=== PATIENT | female | born 1985 | race Caucasian/White ===

== ENCOUNTER 2021-01-01 08:08 | Emergency (ER) | payer OTHER, SELFPAY ==
[2021-01-01 08:10] VITALS: BP 163/100; PULSE 104; RESP 16; TEMP 36.8; O2SAT 99; BMI 44.4
--- NOTE | 2021-01-01 08:38 | ED.DENTAL ---
HPI - Dental/Oral General Chief complaint: Dental/Oral <HENNY Hall - Last Filed: 01/01/21 10:26> Stated complaint: dental pain <HENNY Hall - Last Filed: 01/01/21 10:26> Time Seen by Provider: 01/01/21 08:37 <HENNY Hall - Last Filed: 01/01/21 10:26> Source: patient <HENNY Hall - Last Filed: 01/01/21 10:26> Mode of arrival: ambulatory <HENNY Hall - Last Filed: 01/01/21 10:26> Limitations: no limitations <HENNY Hall - Last Filed: 01/01/21 10:26> History of Present Illness HPI Narrative: 35 yo female with no known medical history presents to the emergency department with 1 day of severe dental pain. Patient states she was scheduled to get it to fall this summer, however she skipped the appointment. She states that they had to take it out because it was a broken and rotted tooth . Patient states she was not able to sleep last night due to severe 10/10 pain, constant in nature, sharp and non radiating. She denies recent dental procedures, trouble breathing, difficulty swallowing, fevers, chills, malaise, fatigue. Denies trauma to the area. Daily 1PPD smoker <HENNY Hall - Last Filed: 01/01/21 10:26> MD Complaint: tooth pain <HENNY Hall - Last Filed: 01/01/21 10:26> Teeth map: 1. Broken tooth. <HENNY Hall - Last Filed: 01/01/21 10:26> Onset (ago): day(s) (1) <HENNY Hall - Last Filed: 01/01/21 10:26> Duration: constant <HENNY Hall - Last Filed: 01/01/21 10:26> Severity: severe <HENNY Hall - Last Filed: 01/01/21 10:26> Severity scale (1-10): 10 <HENNY Hall Last Filed: 01/01/21 10:26> Relieving factors: nothing <HENNY Hall Last Filed: 01/01/21 10:26> Exacerbating factors: nothing <HENNY Hall Last Filed: 01/01/21 10:26> Context: history of dental caries and poor dental care <HENNY Hall Last Filed: 01/01/21 10:26> Treatment prior to arrival: none <HENNY Hall - Last Filed: 01/01/21 10:26> Related Data Home medications: Previous Rx's Medication Instructions Recorded amoxicillin 500 mg capsule 500 mg PO Q8H 7 Days #21 cap 01/01/21 naproxen 500 mg tablet 500 mg PO BID PRN #14 tab 01/01/21 <HENNY Hall Last Filed: 01/01/21 10:26> Allergies/adverse reactions: Allergies Allergy/AdvReac Type Severity Reaction Status Date / Time No Known Allergies Allergy Verified 01/01/21 08:09 <HENNY Hall Last Filed: 01/01/21 10:26> Review of Systems Review of Systems: Constitutional : No Weight loss, No Fever, No Chills, No Fatigue, No Malaise ENT/Mouth : No sore throat, No Rhinorrhea, + tooth pain Eyes: No Eye Pain, No Swelling, No Redness Cardiovascular : No Chest Pain, No SOB, No Dyspnea on Exertion Respiratory : No Cough, No Sputum, No Wheezing Gastrointestinal : No Nausea, No Vomiting, No Diarrhea, No Constipation, No abdominal Pain, No Hematochezia, No Melena Genitourinary : No Dysuria, No Urinary Frequency, No Hematuria, Musculoskeletal : No joint pain, No Myalgias, No Joint Swelling Skin : No Skin Lesions, No rash Neuro : No Weakness, No Numbness, No Dizziness, No Headache All other systems reviewed and are negative <HENNY Hall Last Filed: 01/01/21 10:26> [facility] Past Medical History Attestation statement: The following information was validated with the patient. <HENNY Hall Last Filed: 01/01/21 10:26> Source: old records reviewed and nursing notes reviewed <HENNY Hall - Last Filed: 01/01/21 10:26> Medical History: Medical History (Updated 01/01/21 @ 09:20 by HENNY Hall) No known health problems <HENNY Hall - Last Filed: 01/01/21 10:26> Social History Social History: Social History Advance Directives: No Patient : No <HENNY Hall - Last Filed: 01/01/21 10:26> Physical Exam Vital Signs: Vital Signs: Last Vital Signs Temp 97.8 F 01/01/21 09:06 Pulse 91 01/01/21 09:06 Resp 16 01/01/21 09:06 BP 147/78 H 01/01/21 09:06 Pulse Ox 100 01/01/21 09:06 Body Mass Index 44.4 <HENNY Hall - Last Filed: 01/01/21 10:26> Vital Signs: Last Vital Signs Temp 97.8 F 01/01/21 09:06 Pulse 91 01/01/21 09:06 Resp 16 01/01/21 09:06 BP 147/78 H 01/01/21 09:06 Pulse Ox 100 01/01/21 09:06 Body Mass Index 44.4 <Álvaro Johnson MD - Last Filed: 01/01/21 09:04> Appearance: Alert.? Oriented X3.? No acute distress.?Controlling secretions well Eyes: Pupils equal, round and reactive to light.? ENT: Pharynx normal.?+ poor dention +halatosis + tooth #14 broken +pain with percussion of tooth #14 No abcess noted No gingival swelling. Uvula midline Neck: Normal inspection.? Neck supple.? CVS: Normal heart rate and rhythm.? Pulses normal.? Respiratory: No respiratory distress.? Breath sounds normal.? Abdomen: Soft and nontender.? Skin: Skin warm and dry.? Normal skin color.? Normal skin turgor.? Neuro: Oriented X 3.? No motor deficit.? No sensory deficit. <HENNY Hall - Last Filed: 01/01/21 10:26> Course Reevaluation(s) Reevaluation #1: discussed with PA and agree with plan <Álvaro Johnson MD - Last Filed: 01/01/21 09:04> Time: 09:04 <Álvaro Johnson MD - Last Filed: 01/01/21 09:04> MDM - Dental/Oral MDM Narrative Medical decision making narrative: 08 35-year-old female no known medical history presents to the emergency department with concerns of tooth pain since last night. Patient states she was scheduled to get the tooth removed this summer, however she never went to her appointment. She states that they were taking it out because it was broken, and rotten . Patient is a current daily smoker 1PPD. Patient states she usually goes to the [facility], and she is planning on going tomorrow. Upon physical examination there is poor dentition noted, as well as halitosis. Tooth 14. Appears broken. There is pain to percussion and palpation of tooth 14. No gingival swelling, edema or ecchymosis. No bleeding. No abscess noted. Uvula is midline. Patient appears comfortable, controlling secretions well, no acute distress. Patient's vital signs show patient to be hypertensive, and tachycardic (will recheck vitals prior to discharge) these are likley elevated secondary to 10/10 pain. Plan at this time is to give patient medication for pain and antibiotics. And provide her with outpatient follow-up, she has been advised to follow-up with a dental provider. She has also been advised to return to the emergency department with new or worsening symptoms such as severe pain, fevers, chills as these could be signs of infection. Patient is safe for DC home with dental follow up. <HENNY Hall - Last Filed: 01/01/21 10:26> Discharge Plan Discharge Clinical Impression: Toothache Fracture of tooth Qualifiers: Encounter type: subsequent encounter Fracture type: closed <HENNY Hall - Last Filed: 01/01/21 10:26> Patient Disposition: Home, Self-Care <HENNY Hall - Last Filed: 01/01/21 10:26> Instructions: Toothache (ED), Tooth Extraction (DC) <HENNY Hall - Last Filed: 01/01/21 10:26> Additional Instructions: Take your medications as prescribed. Take all antibiotics. Dont stop them early Follow-up with your dentist tomorrow. [facility] [phone] Return to the emergency department with new or worsening symptoms. Such as worsening pain, fevers, chill, troubble swallowing. In case of emergency call 911 <HENNY Hall - Last Filed: 01/01/21 10:26> Prescriptions: New amoxicillin 500 mg capsule 500 mg PO Q8H 7 Days Qty: 21 RF: 0 naproxen 500 mg tablet 500 mg PO BID PRN (Reason: pain) Qty: 14 RF: 0 <HENNY Hall - Last Filed: 01/01/21 10:26> Referrals: Dorita Smith PA [Primary Care Provider] - 2 days <HENNY Hall - Last Filed: 01/01/21 10:26> Stand Alone Forms: Work/School Release <HENNY Hall - Last Filed: 01/01/21 10:26> Interventions: ED Discharge Assessment Last Done: 01/01/21 09:43 <HENNY Hall - Last Filed: 01/01/21 10:26> Discharge Date/Time: 01/01/21 09:43 <HENNY Hall - Last Filed: 01/01/21 10:26> Print Language: Albanian <HENNY Hall - Last Filed: 01/01/21 10:26>
[2021-01-01 09:06] VITALS: BP 147/78; PULSE 91; RESP 16; TEMP 36.6; O2SAT 100
[2021-01-01] MEDS: Ketorolac Tromethamine 15 MG/ML VIAL 30 MG IM (09:30)
== END 2021-01-01 09:43 | disposition home or self-care (01) ==
PROVIDERS: Emergency Provider Emergency Medicine; PCP Physician Assistant
DX: K08.89 Other specified disorders of teeth and supporting structures (principal); S02.5XXA Fracture of tooth (traumatic), initial encounter for closed fracture; X58.XXXA Exposure to other specified factors, initial encounter; R00.0 Tachycardia, unspecified; F17.200 Nicotine dependence, unspecified, uncomplicated; Y93.9 Activity, unspecified; Y92.9 Unspecified place or not applicable; Y99.9 Unspecified external cause status
CPT/HCPCS: 96372; 99284; J1885

== ENCOUNTER 2021-08-05 22:22 | Emergency (ER) | payer OTHER, SELFPAY ==
[2021-08-05 23:09] VITALS: PULSE 106; RESP 18; TEMP 37; O2SAT 99; BMI 51.5
[2021-08-05] MEDS: Ibuprofen 600 MG TABLET PO (23:15)
--- NOTE | 2021-08-06 01:08 | ED.HA ---
HPI - Headache General Chief Complaint: Headache Stated Complaint: Headache Time Seen by Provider: 08/06/21 01:08 History of Present Illness HPI Narrative: Patient is a 36-year-old female presents today with having headache for 1 day. The headache is frontal in nature. Not associated with any fever chills. No photophobia. Positive congestion. There is no neck pain. There is no diaphoresis no focal weakness. No sore throat. There is no coughing or congestion or upper respiratory symptoms. Patient immunized for COVID x3. Headache is mild. It was gradual in onset. No history of intracranial bleed in the family. No trauma Related Data Previous Rx's Medication Instructions Recorded amoxicillin 500 mg capsule 500 mg PO Q8H 7 days #21 caps 01/01/21 naproxen 500 mg tablet 500 mg PO BID PRN pain #14 tabs 01/01/21 azithromycin 250 mg tablet See Rx Instructions PO .COMPLEX 08/06/21 upper resp infection #6 tabs cetirizine 10 mg tablet (Zyrtec) 10 mg PO DAILY 7 days #7 tabs 08/06/21 Allergies Allergy/AdvReac Type Severity Reaction Status Date / Time No Known Allergies Allergy Verified 01/01/21 08:09 Review of Systems Review of Systems: Positive congestion positive headache no bowel urinary incontinence no focal weakness no fever no chills Yes all other systems are reviewed and are negative [facility] Past Medical History Attestation statement: The following information was validated with the patient. Medical History No known health problems Social History Social History Advance Directives: No Physical Exam Vital Signs: Vital Signs: Last Vital Signs Temp 98.6 F 08/05/21 23:09 Pulse 106 H 08/05/21 23:09 Resp 18 08/05/21 23:09 Pulse Ox 99 08/05/21 23:09 O2 Del Method 08/05/21 23:09 BMI result Body Mass Index 51.5 Appearance: Alert. Oriented X3. No acute distress. Eyes: Pupils equal, round and reactive to light. ENT: Pharynx normal. Neck: Normal inspection. Neck supple. No lymph nodes noted. No crepitus CVS: Normal heart rate and rhythm. Pulses normal. Normal S1 and S2 Respiratory: No respiratory distress. Breath sounds normal. No Wheezing. No rales Abdomen: Soft and nontender. No rigidity. No distention. good BS x4 Skin: Skin warm and dry. Normal skin color. Normal skin turgor. Extremities: No lower extremity edema. Neurovascular intact to all extremities. No Lacerations. No Rash Neuro: Oriented X 3. No motor deficit. No sensory deficit. Moving all extermities. No slurred speech MDM - Headache MDM Narrative Medical decision making narrative: Well-appearing no acute distress. Neurological exam intact. Question sinusitis. Will start patient on some Z-Rajesh. A COVID test is sent. If it is negative we will discharge patient home. COVID test was negative Differential Diagnosis Differential diagnosis: Likely sinusitis Medical Records Attestation: I reviewed the patient's medical records. Lab Data Attestation: I reviewed the patient's lab results. Labs: Lab Results 08/06/21 Range/Units 00:52 COVID-19 (AILIN) Negative (Negative) COVID-19 Clin Com See Note Discharge Plan Discharge Clinical Impression: Sinusitis Patient Disposition: Home, Self-Care Instructions: Sinusitis (ED) Prescriptions: New cetirizine [Zyrtec] 10 mg tablet 10 mg PO DAILY 7 Days Qty: 7 0RF azithromycin 250 mg tablet See Rx Instructions .ROUTE .COMPLEX Qty: 6 0RF Rx Instructions: take 500 mg today (day 1), then 250 mg for 4 days (days 2-5) No Action amoxicillin 500 mg capsule 500 mg PO Q8H 7 Days Qty: 21 0RF naproxen 500 mg tablet 500 mg PO BID PRN (Reason: pain) Qty: 14 0RF Referrals: Dorita Leger MD [Primary Care Provider] -
[2021-08-06 01:13] LABS: COVID-19 Test Negative (Negative); IDNOW Serial# 16C4AD1C
--- NOTE | 2021-08-06 01:16 | PC.NURSE ---
REPORT AND CARE TRANSFERRED TO JULIANA ECHEVARRIA.
== END 2021-08-06 01:59 | disposition home or self-care (01) ==
PROVIDERS: Emergency Provider Emergency Medicine Emergency Medical Services; PCP Family Medicine
DX: J32.9 Chronic sinusitis, unspecified (principal); Z20.822 Contact with and (suspected) exposure to COVID-19
CPT/HCPCS: 87635; 99283

== ENCOUNTER 2024-07-30 15:18 | Outpatient (AMB) | payer BC, SELFPAY ==
--- NOTE | 2024-07-30 15:27 | A.OFFPC_ITS ---
Vital Signs 07/30/24 15:31 Height 4 ft 9.68 in Weight 213 lb BMI 45.0 BP 132/80 Blood Pressure Location Lt brachial Position Sitting Intake Visit Reasons: [facility] Breakfast Attendant Required: No Accompanied by: Self / Same As Patient Allergies No Known Allergies Allergy (Verified 07/30/24 15:41) Medication List - Last Reconciled 07/30/24 by Merline Mullins MD No Known Home Meds Tobacco use date assessed: 07/30/24 Dental Screening Dental Screen Date: 07/30/24 Did you have a dental visit in the last 12 months?: No Did you have a dental problem in the last 6 months where you did not have access to dental care?: No Was dental information given to patient?: Patient has dentist HPI HPI Comments History of Present Illness Details The patient is a 39-year-old female presenting to [facility]. She has a notable medical history of congenital cataracts surgically resolved about two years ago, which she associates with influences, potentially related to her mother's diabetic status. She is experiencing chronic sinusitis aggravated by weather changes. Feelings of anxiety and depression are acknowledged, but the patient is not interested in medication at this time. She has mild major depression with minimal anxiety and I will start her on bupropion. She currently smokes around ten cigarettes per day and consumes alcohol occasionally. The patient's mother has Alzheimer's disease, and her father from pulmonary fibrosis and a mental illness. She is well-informed about her health, including good urinary and bowel function, yet expresses concern over persistent phlegm not alleviated through a cathartic process. While she is aware of weight management conversations regarding tirzepatide, no specific intervention has begun. She confirms her last tetanus vaccine was over ten years ago and consents to receiving it today. [facility] Medical History No known health problems Surgical History History of cataract surgery Family History Mother Alzheimer disease Father Pulmonary fibrosis Mental health disorder Social History (Updated 07/30/24 @ 15:47 by Merline Mullins MD) Housing: Apartment Alcohol intake: current Alcohol intake frequency: holidays/special occasions only Alcohol type: beer and hard liquor Patient Tobacco Use Status: Current everyday Tobacco user Tobacco use type: Cigarette Cigarette Packs Per Day: 0.5 e-Cigarette/Vaping Use: Never Used Second Hand Smoke Exposure: No service: No Current occupational status: employed Current occupational exposures/hazards: No Cognitive needs: No Hearing needs: No Vision needs: Yes Questionnaire PHQ-9 Over the last 2 weeks, how often have you been bothered by any of the following problems? 1. Little interest or pleasure in doing things: not at all 2. Feeling down, depressed, or hopeless: not at all 3. Trouble falling or staying asleep, or sleeping too much: more than half the days 4. Feeling tired or having little energy: several days 5. Poor appetite or overeating: not at all 6. Feeling bad about yourself - or that you are a failure or have let yourself or your family down: not at all 7. Trouble concentrating on things, such as reading the newspaper or watching television: not at all 8. Moving or speaking so slowly that other people could have noticed. Or the opposite - being so fidgety or restless that you have been moving around a lot more than usual: not at all 9. Thoughts that you would be better off or of hurting yourself in some way: not at all Total score: 3 Depression Screening Interpretation: Positive Depression Screening Follow-up: Existing condition, New Medication prescribed and Follow-up Visit Requested Depression Screening Done: Yes 52488 - PHQ-9 Billing: Yes Source: Developed by Drs. Rome Remy, Kassy Oliva, Chandra Fam and colleagues, with an educational ahsan from [employer]. Thrive Questionnaire Date Thrive assessed: 07/30/24 I am a: Patient What is your living situation today?: I have a steady place to live Within the past 12 months, did the food you bought not last and you didn't have the money to get more?: Never true Within the past 12 months, did you worry whether your food would run out before you got money to buy more?: Never true Do you have trouble paying for medicines?: No Do you have trouble getting transportation to medical appointments?: No Do you have trouble paying your heating and electricity bill?: No Do you have trouble taking care of your child, family member or friend?: No Do you have trouble with day-to-day activities such as bathing, preparing meals, shopping, managing finances, etc.?: No Are you currently unemployed and looking for a job?: No Are you interested in more education?: I choose not to answer this question Please select the resources that you would like help with: None Currently or been in a relationship where the following occur: No concerns reported THRIVE Score: 0 AUDIT C Alcohol Use Questionnaire (AUDIT-C) 1. How often do you have a drink containing alcohol?: Monthly or less 2. How many drinks containing alcohol do you have on a typical day when you are drinking?: 1 or 2 3. How often do you have six or more drinks on one occasion?: Never Total Score: 1 Score Reviewed/Action Taken: No JULES-7 AMB Questionnaire JULES-7 Date JULES - 7 assessed: 07/30/24 Feeling nervous, anxious, or on edge: 0 = Not at all Not being able to stop or control worryin = Not at all Worrying too much about different things: 1 = Several days Trouble relaxin = Not at all Being so restless that it is hard to sit still: 0 = Not at all Becoming easily annoyed or irritable: 0 = Not at all Feeling afraid as if something awful might happen: 0 = Not at all Total JULES-7 score (0-4 normal; 5-9 mild; 10-14 moderate; 15-21 severe): 1 Source: Developed by Drs. Rome Remy, Kassy Oliva, Chandra Fam and colleagues, with an educational ahsan from [employer]. JULES-7 Assessment Billing JULES-7 Assessment Tool: JULES-7 Assessment 88508 Review of Systems Const All systems reviewed & are unremarkable except as noted in HPI and below Card Denies chest pain at rest, Denies chest pain with activity, Denies edema, Denies irregular heart rhythm, Denies claudication, Denies dyspnea, Denies dyspnea on exertion, Denies orthopnea, Denies paroxysmal nocturnal dyspnea and Denies slow heart rate Resp Denies cough, Denies dyspnea and Denies dyspnea on exertion GI Denies abdominal pain, Denies change in bowel habits, Denies excessive flatus, Denies nausea and Denies vomiting Physical exam (Primary Care) Vital Signs: Last Vital Signs BP 132/80 07/30/24 15:31 BMI result Body Mass Index 45.0 Tobacco/Smoking Status: Tobacco use Status Tobacco use date assessed 07/30/24 07/30/24 15:38 Patient Tobacco Use Status Current everyday Tobacco 07/30/24 15:47 Tobacco use type Cigarette 07/30/24 15:47 e-Cigarette/Vaping Use Never Used 07/30/24 15:47 PHQ-9: PHQ-9 Score PHQ-9: Total score 3 07/30/24 16:00 Depression Screening Interpretation: Positive Depression Screening Follow-up: Existing condition, New Medication prescribed and Follow-up Visit Requested Thrive Assessment: Date of Thrive Assessment Date Thrive assessed 07/30/24 07/30/24 15:27 Currently or been in a relationship where the following occur: No concerns reported Resp Effort & Inspection: normal respiratory effort Auscultation: clear to auscultation bilaterally Cardio Jugular venous distension: no JVD Rate: regular rate Rhythm: regular rhythm Heart sounds: S1 normal heart sound present and S2 normal heart sound present Extrem General: Yes full ROM Immunizations Boostrix Tdap 2.5 Lf unit-8 mcg-5 Lf/0.5 mL intramuscular syringe Performing Provider: Merline Mullins MD [facility] Administered by: CRYSTAL Davis on 07/30/24 16:01 Dose Route Admin Location Dispensed Lot Number Expiration Date NDC [employer] 0.5 mL IM Left Deltoid 0.5 mL [id number] 10/24/26 [id number] [employer] VIS Given Date VIS Provided VIS Publication Date 07/30/24 Single Vaccine 24 Eligibility Eligibility Date Funding Source Not [facility] Eligible 07/30/24 Private Coding Level of Care Code New Pt Level 4 (38008) Complex EM visit Add On G2211 Diagnoses Morbid obesity with BMI of 45.0-49.9, adult E66.01; Z68.42 JULES (generalized anxiety disorder) F41.1 Mild recurrent major depression F33.0 URI (upper respiratory infection) J06.9 Chronic sinusitis J32.9 Additional Codes JULES-7 Assessment Billing - JULES-7 Assessment Tool: JULES-7 Assessment 22229 ([id number]) PHQ-9 - 03656 - PHQ-9 Billing: Yes ([id number]) Time Spent (min) 20 Assessment & Plan Assessment & Plan (1) Morbid obesity with BMI of 45.0-49.9, adult: Code(s): E66.01 - Morbid (severe) obesity due to excess calories; Z68.42 - Body mass index [BMI] 45.0-49.9, adult Category: Medical (2) JULES (generalized anxiety disorder): Code(s): F41.1 - Generalized anxiety disorder Category: Medical (3) Mild recurrent major depression: Code(s): F33.0 - Major depressive disorder, recurrent, mild Category: Medical (4) URI (upper respiratory infection): Code(s): J06.9 - Acute upper respiratory infection, unspecified Category: Medical (5) Chronic sinusitis: Code(s): J32.9 - Chronic sinusitis, unspecified Category: Medical Plan Management of congenital cataracts does not require further intervention beyond annual ophthalmologic evaluations. Acknowledging the patient's preference against pharmacotherapy for anxiety and depression while considering support options remains a priority. Chronic sinusitis management through conservative measures such as nasal sprays is discussed. Tobacco cessation encouragement continues, with plans to update her tetanus inoculation today. Potential tirzepatide discussions should be revisited in future appointments. Noting family history, precautions against similar health issues are advised. Patient was informed and verbally consented to the use of an ambient scribe for clinic note documentation during this visit. We discussed that her cataracts no longer require monitoring post-surgery. For anxiety and depression, I outlined non-pharmacological approaches since the patient declines medication. Chronic sinusitis likely benefits from [id number] approaches unless exacerbations occur. Attempts at weight management were discussed alongside considering tirzepatide for the future, mindful of potential side effects. I emphasized tobacco cessation benefits and encouraged considering programs or aids. She agreed to update her tetanus vaccine today, understanding risks if vaccination is delayed. Family history was addressed to provide anticipatory guidance. Orders: Orders Complete Blood Count Auto Diff Today E66.01 - Morbid (severe) obesity due to excess calories, Z68.42 - Body mass index [BMI] 45.0-49.9, adult Lipid Panel Today E66.01 - Morbid (severe) obesity due to excess calories, Z68.42 - Body mass index [BMI] 45.0-49.9, adult Comprehensive [place]. Panel Fast Today E66.01 - Morbid (severe) obesity due to excess calories, Z68.42 - Body mass index [BMI] 45.0-49.9, adult Thyroid Stimulating Hormone Today E66.01 - Morbid (severe) obesity due to excess calories, Z68.42 - Body mass index [BMI] 45.0-49.9, adult TDaP Immunization Today Z23 - Encounter for immunization Referrals Medical Weight Management Referral E66.01 - Morbid (severe) obesity due to excess calories, Z68.42 - Body mass index [BMI] 45.0-49.9, adult TUBE TEST TECHNICIAN Referral Z12.4 - Encounter for screening for malignant neoplasm of cervix Medications: New bupropion HCl XL 150 mg PO QAM 90 tabs 1RF 90 days F33.0 - Major depressive disorder, recurrent, mild fluticasone propionate 50 mcg/actuation (Flonase Allergy Relief) administer into each nostril 1 spray intranasal DAILY 16 grams 0RF 30 days J32.9 - Chronic sinusitis, unspecified guaifenesin ER (Mucinex) 600 mg PO BID 10 tabs 0RF 5 days J06.9 - Acute upper respiratory infection, unspecified Discontinued cetirizine (Zyrtec) Discontinued Reason: Patient no longer taking 10 mg PO DAILY 7 days 7 tabs 0RF azithromycin Discontinued Reason: Patient Completed Course take 500 mg today (day 1), then 250 mg for 4 days (days 2-5) 6 tabs 0RF upper resp infection
[2024-07-30 15:31] VITALS: BP 132/80; BMI 45.0
== END 2024-07-30 16:04 | disposition home or self-care (01) ==
LOC: HO.HMCH 15:19
PROVIDERS: PCP Family Medicine; Visit Provider Internal Medicine
DX: E66.01 Morbid (severe) obesity due to excess calories (principal); Z68.42 Body mass index [BMI] 45.0-49.9, adult; F41.1 Generalized anxiety disorder; F33.0 Major depressive disorder, recurrent, mild; J06.9 Acute upper respiratory infection, unspecified; J32.9 Chronic sinusitis, unspecified; Z23 Encounter for immunization

== ENCOUNTER → 2024-07-30 15:18 | Outpatient (BNVA) | payer BC, SELFPAY | PROVIDERS: PCP Family Medicine; Visit Provider Internal Medicine | DX: J32.9 Chronic sinusitis, unspecified (principal); F41.9 Anxiety disorder, unspecified; F17.210 Nicotine dependence, cigarettes, uncomplicated; F41.1 Generalized anxiety disorder; F33.0 Major depressive disorder, recurrent, mild; J06.9 Acute upper respiratory infection, unspecified; E66.01 Morbid (severe) obesity due to excess calories; Z23 Encounter for immunization; Z68.42 Body mass index [BMI] 45.0-49.9, adult | CPT/HCPCS: 90471; 90715; 96127 ==

== ENCOUNTER 2024-08-05 08:48 | Outpatient (REF) | payer BC, SELFPAY ==
[2024-08-05 09:13] LABS: MANUAL DIFF FLAG NO
[2024-08-05 09:59] LABS: Basophils Absolute Auto 0.1 X10*3/uL (0.0-0.2); Basophils Percent Auto 0.6 % (0-2); Eosinophils Absolute Auto 0.2 X10*3/uL (0.0-0.4); Eosinophils Percent Auto 1.9 % (0-4); Hematocrit 42.8 % (37.0-47.0); Imm Gran Abs Auto 0.09 X10*3/uL (0.00-0.03); Imm Gran Pct Auto 0.9 % (0.0-0.4); Lymphocytes Absolute Auto 2.7 X10*3/uL (1.2-4.9); Lymphocytes Percent Auto 25.3 % (20-40); Mean Corpuscular HGB Conc 32.7 g/dl (31.0-35.0); Mean Corpuscular Hemoglobin 27.6 pg (27.0-33.0); Mean Corpuscular Volume 84.3 fL (80.0-98.0); Mean Platelet Volume 10.5 fL (9.4-12.3); Monocytes Absolute Auto 0.8 X10*3/uL (0.1-1.2); Monocytes Percent Auto 7.1 % (2-11); Neutrophils Absolute Auto 6.8 x10*3/uL (2.0-8.3); Neutrophils Percent Auto 64.2 % (45-73); Platelet Count 279 X10*3/uL (160-400); Red Blood Count 5.08 X10*6/uL (4.20-5.50); Red Cell Distribution Width 14.2 % (11.0-16.0); White Blood Count 10.5 X10*3/uL (4.8-10.8)
[2024-08-05 10:32] LABS: Alanine Aminotransferase 25 U/L (0-31); Albumin Level 4.3 g/dL (3.5-5.0); Alkaline Phosphatase 59 U/L (39-117); Anion Gap 11 (12-20); Aspartate Amino Transferase 23 U/L (5-31); Bilirubin Total 0.2 mg/dL (0.0-1.0); Blood Urea Nitrogen 9 mg/dL (9-16); Calcium 9.2 mg/dL (8.4-10.2); Carbon Dioxide 26 mmol/L (22-29); Chloride 107 mmol/L (96-108); Cholesterol 158 mg/dL (<200); Estimated Glomerular Filt Rate > 60; Glucose Fasting 88 mg/dL (60-99); HDL Cholesterol 33 mg/dL (>40); LDL Cholesterol Calculated 89 mg/dL (<100); Potassium 3.8 mmol/L (3.3-5.1); Sodium 140 mmol/L (135-145); Total Protein 7.8 g/dL (6.5-8.0); Triglycerides 182 mg/dL (<150)
[2024-08-05 10:54] LABS: Thyroid Stimulating Hormone 1.92 uIU/mL (0.32-4.0)
== END 2024-08-05 08:49 | disposition home or self-care (01) ==
LOC: HO.LAB 08:48
PROVIDERS: PCP Internal Medicine; Visit Provider Internal Medicine
DX: E66.01 Morbid (severe) obesity due to excess calories (principal); Z68.42 Body mass index [BMI] 45.0-49.9, adult
CPT/HCPCS: 36415; 80053; 80061; 84443; 85025

== ENCOUNTER 2024-12-04 08:24 | Outpatient (AMB) | payer BC, SELFPAY ==
[2024-12-04 14:03] VITALS: BMI 46.5
--- NOTE | 2024-12-04 14:03 | A.OFFVIS_ITS ---
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* Poultry Offal Worker Required: Yes Poultry Offal Worker Services: Poultry Offal Worker Present Information Interpreted: clinical only Allergies No Known Allergies Allergy (Verified 12/04/24 14:05) Medication List - Last Reconciled 12/04/24 by Mike Gupta MD bupropion HCl XL 150 mg PO QAM 90 days fluticasone propionate 50 mcg/actuation (Flonase Allergy Relief) 1 spray intranasal DAILY 30 days guaifenesin ER (Mucinex) 600 mg PO BID 5 days HPI 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*: Details: Start time: 1.55pm, End time: 2.55pm ?I spent 55 minutes speaking with the patient on the phone plus an additional 5 minutes reviewing and updating records for a total of 60 minutes HPI Comments Details: Previous weight loss efforts: Tirzepatide for 3 months (lost 25lbs) Wakes up: 10am, Sleeps: 1am Breakfast: 11am (pancakes, scrambled eggs) Lunch: skips Dinner: 5-6pm (chicken, pasta, rice, beans) Snacks: 12-1pm (yogurt, fruits), 9-10pm (same) Exercise: none Beverages: Coffee (1 cup/d, cream and milk), Tea: none, Soda: Regular or diet coke x3-4/wk, Juice: Crystal light lemonade, ETOH: none PFSH Medical History (Updated 12/04/24 @ 14:13 by Mike Gupta MD) Anxiety Depression No known health problems Surgical History History of cataract surgery Family History Mother Alzheimer disease Father Pulmonary fibrosis Mental health disorder Social History (Updated 07/30/24 @ 15:47 by Merline Mullins MD) Housing: Apartment Alcohol intake: current Alcohol intake frequency: holidays/special occasions only Alcohol type: beer and hard liquor Patient Tobacco Use Status: Current everyday Tobacco user Tobacco use type: Cigarette Cigarette Packs Per Day: 0.5 e-Cigarette/Vaping Use: Never Used Second Hand Smoke Exposure: No service: No Current occupational status: employed Current occupational exposures/hazards: No Cognitive needs: No Hearing needs: No Vision needs: Yes Telehealth Telehealth Telehealth Platform: Telephone Location of provider rendering services: practice address Location of patient: address on file Patient Identification confirmed using: Name, : Yes Telehealth method: voice only Patient verbally consented to treatment: Yes Patient verbally consented to billing insurance company: Yes Patient informed of any privacy concerns related to visit: Yes Minutes spent on Phone/Video with Pt.: 60 Assessment & Plan Assessment & Plan (1) Morbid obesity with BMI of 45.0-49.9, adult: Code(s): E66.01 - Morbid (severe) obesity due to excess calories; Z68.42 - Body mass index [BMI] 45.0-49.9, adult Category: Medical Plan: 1.? Plan for lap sleeve gastrectomy. If diaphragmatic or ventral hernias ar e present at time of surgery, these will be repaired laparoscopically as well. I emphasized the importance of close follow-up, adherence to instructions and good communication. The surgery does not replace the need to change your lifestlyle which is the cause of the obesity problem. The surgery provides the motivation to try again to change your lifestyle, it reduces the appetite and make the transition to a better lifestyle easier and doubles the amount of weight you would lose compared to doing the lifestyle change without the surgery. You will need to be on a liquid diet with protein shakes for 2 weeks before surgery to maximize weight loss and boost your nutritional status to recover better from surgery and also for the first two weeks after surgery to let the stomach heal before we introduce other foods. After the first 2 weeks we will introduce protein bars and soft foods like scrambled eggs, cottage cheese and yogurt and after the 6th week will introduce meat, fish and cooked vegetables in small amounts. Over time you should be able to eat everything in small amounts. Side effects like nausea, vomiting, heartburn or abdominal pain are not common in the practice unless you are not following in the practice. This operation requires lifetime commitment to following in our practice and communication with me. You will much less weight and experience side effects if you don?t communicate or not following in the practice. Complications are rare and in our practice is about 1/10 of the national average. However, you can develop bleeding that may require transfusion (hasn?t happened for year in the practice), you may from complications (we did not have any deaths in the practice) and infections. Infections are usually a result of breakdown in comm unication or not understanding or following directions correctly. They are difficult to treat, they can happen during the first 6 weeks, they may require to be in the hospital for weeks or even months, not being able to eat by mouth and you may have drains and surgeries to try and correct the issue. Other risks and complications include possible conversion to an open procedure, leaks, small bowel obstruction, blood clots, cardiac, or pulmonary complications, as long term acute care registered nurse complications such as ulcers, insufficient weight loss and vitamin deficiencies. 2. Nutritional counseling. Start with one premade PREMIER protein (buy at [employer] or [employer]) shake (mix 4oz of Premier mixed with 4oz low fat unsweetened almond milk each) at 11am-1pm, one protein bar (Fit Crunch protein bar, buy at [employer], or [employer]) at 2pm-4pm, dinner at 5pm (8 forks of protein and 8 forks of salad/vegetables), another premade PREMIER protein shake (mix 4oz of Premier mixed with 4oz low fat unsweetened almond milk each) at 7pm-9pm, another Fit Crunch protein bar at 10pm to midnight. So you do 2 protein shakes, 2 protein bars and one meal per day. Meal to include lean meat (beef, fish, pork, turkey, chicken), or yoruba yogurt, or egg whites, or beans with a salad with olive oil and fruits (berries, pears, apples, kiwi). Avoid salt, breads, potatoes, rice, pasta, desserts. 3. Each shake would be drunk slowly, like coffee in a period of 2 hours. 4. Cut each bar in 4 pieces and eat each piece in 30min ?to make each bar last 2 hours. 5. I emphasized the importance of measuring accurately the food portion and measure it when serving the food in plate 6. The meal portions include 8 full-size forks of meat and 8 full-size forks of salad. You always eat the meat portion but you can replace up to 4 forks for salad/vegetables with rice, potatoes or pasta, or a fruit ?if you like. The less you do it the better weight loss will be. 7. One full-size fork is what it can be scooped on the fork without falling aside and not what can be bit with the fork. Use regular forks like those you find in a typical restaurant. 8.? Please buy the body composition scale we discussed and send me weight measurements as soon as possible and then once a week. Always include your diet and exercise plan. 9. Start walking outside daily, tracking calories with a goal of 300 calories per day, daily. Goal is to burn 2000 calories per week on exercise, which means either 300 calories daily, or 400 calories 5 days per week, or 500 calories 4 days per week, or 650 calories 3 days per week. 10. The best choice would be to purchase a stationary bike at home that can track calories. Let me know if you get one to provide you with an exercise plan. 11.?It is important of avoiding and for at least 18 months postoperatively and has been discussed at the infosession. 12. Goal is to lose at least 1.5-2lbs per week 13. Goal to lose 10% of your weight before surgery, which is about 20lbs. Ultim ate weight goal: 195lbs before surgery 14. Please follow the diet plan exactly without any change. If you don't like something about the plan or you feel hungry you need to communicate with me so I can help you revise the plan. You should not change the plan yourself 15. To be scheduled for EGD to assess the stomach's anatomy. The possibility of biopsies was discussed. Patient needs to avoid use of NSAIDs and aspirin for 1 week prior to EGD. You must be on liquids only the day before your endoscopy. Risks of perforation and bleeding was discussed with the patient. This will be an outpatient procedure with IV sedation. 16. Start Phentermine at 1pm daily. Do not start it before you send me weight measurements with the new scale. We discussed the potential side-effects of the Phentermine such as irritability, dry mouth, difficulty sleeping, dizziness, numbness in feet and high blood pressure. I asked her to get a blood pressure monitor and measure the blood pressure daily in the morning and evening. She needs to send the blood pressure readings daily and to call the office for blood pressure over 140/80 and she understands that. Medications: New phentermine must administer 30 minutes before or 1-2 hours after breakfast 37.5 mg PO DAILY 30 caps 0RF E66.01 - Morbid (severe) obesity due to excess calories, Z68.42 - Body mass index [BMI] 45.0-49.9, adult
== END 2024-12-04 14:57 | disposition home or self-care (01) ==
LOC: HO.HBS 08:24
PROVIDERS: PCP Internal Medicine; Visit Provider Surgery
DX: E66.01 Morbid (severe) obesity due to excess calories (principal); Z68.42 Body mass index [BMI] 45.0-49.9, adult
CPT/HCPCS: 99205

== ENCOUNTER 2024-12-22 12:00 | Day surgery (SDC) | payer BC, SELFPAY ==
--- NOTE | 2024-12-21 08:42 | P.CONAN_ITS ---
HPI - Anesthesia Eval Consult details Narrative: 39yo F for Upper Endoscopy BMI 46.5 PMFSH Active Problems Active Problems: All Active Problems Anxiety (Acute) Depression (Acute) URI (upper respiratory infection) (Acute) Chronic sinusitis (Acute) Screening for cervical cancer (Acute) Mild recurrent major depression (Acute) JULES (generalized anxiety disorder) (Acute) Morbid obesity with BMI of 45.0-49.9, adult (Acute) Past Medical History Medical History (Updated 12/04/24 @ 14:13 by Mike Gupta MD) Anxiety Depression No known health problems Family History Family History Mother Alzheimer disease Father Pulmonary fibrosis Mental health disorder Surgical History Surgical History History of cataract surgery Social History Social History (Updated 07/30/24 @ 15:47 by Merline Mullins MD) Housing: Apartment Alcohol intake: current Alcohol intake frequency: holidays/special occasions only Alcohol type: beer and hard liquor Patient Tobacco Use Status: Current everyday Tobacco user Tobacco use type: Cigarette Cigarette Packs Per Day: 0.5 e-Cigarette/Vaping Use: Never Used Second Hand Smoke Exposure: No service: No Current occupational status: employed Current occupational exposures/hazards: No Cognitive needs: No Hearing needs: No Vision needs: Yes Meds Allergies Allergy/AdvReac Type Severity Reaction Status Date / Time No Known Allergies Allergy Verified 12/04/24 14:05 Assessment and Plan Assessment Anesthesia Assessment: Chart Reviewed
--- NOTE | 2024-12-21 08:42 | HO.ANESPROP2 ---
Documented by User: Deepa Bentley NP 12/21/24 08:42 HPI - Anesthesia Eval Consult details Narrative: 39yo F for Upper Endoscopy BMI 46.5 PMFSH Active Problems Active Problems: All Active Problems Anxiety (Acute) Depression (Acute) URI (upper respiratory infection) (Acute) Chronic sinusitis (Acute) Screening for cervical cancer (Acute) Mild recurrent major depression (Acute) JULES (generalized anxiety disorder) (Acute) Morbid obesity with BMI of 45.0-49.9, adult (Acute) Past Medical History Medical History Anxiety Depression No known health problems Family History Family History Mother Alzheimer disease Father Pulmonary fibrosis Mental health disorder Surgical History Surgical History Hx of esophagogastroduodenoscopy History of cataract surgery Social History Social History Housing: Apartment Alcohol intake: current Alcohol intake frequency: does not drink Alcohol type: beer and hard liquor Patient Tobacco Use Status: Current everyday Tobacco user Tobacco use type: Cigarette Cigarette Packs Per Day: 0.5 e-Cigarette/Vaping Use: Never Used Second Hand Smoke Exposure: No Have you been hit, kicked, punched, or otherwise hurt by someone within the past year? If so, by whom?: No Advance Directives: No Advance Directives Information Provided: Yes Patient : No FDLMP: 3 weeks ago service: No Current occupational status: employed Current occupational exposures/hazards: No Cognitive needs: No Hearing needs: No Vision needs: Yes Meds Allergies Allergy/AdvReac Type Severity Reaction Status Date / Time No Known Allergies Allergy Verified 12/04/24 14:05 Assessment and Plan Assessment Anesthesia Assessment: Chart Reviewed Documented by User: Yoly Lowry MD 12/22/24 13:22 PMFSH Past Medical History Medical History Anxiety Depression No known health problems Family History Family History Mother Alzheimer disease Father Pulmonary fibrosis Mental health disorder Surgical History Surgical History Hx of esophagogastroduodenoscopy History of cataract surgery History of Problems with Anesthesia: No Social History Social History Housing: Apartment Alcohol intake: current Alcohol intake frequency: does not drink Alcohol type: beer and hard liquor Patient Tobacco Use Status: Current everyday Tobacco user Tobacco use type: Cigarette Cigarette Packs Per Day: 0.5 e-Cigarette/Vaping Use: Never Used Second Hand Smoke Exposure: No Have you been hit, kicked, punched, or otherwise hurt by someone within the past year? If so, by whom?: No Advance Directives: No Advance Directives Information Provided: Yes Patient : No FDLMP: 3 weeks ago service: No Current occupational status: employed Current occupational exposures/hazards: No Cognitive needs: No Hearing needs: No Vision needs: Yes Meds Allergies Allergy/AdvReac Type Severity Reaction Status Date / Time No Known Allergies Allergy Verified 12/04/24 14:05 Exam Airway Mallampati Class: II TM Dist: >3cm Neck ROM: Full Loose/Missing/Broken Teeth: No Heart: RRR Lungs: CTA Assessment and Plan Assessment Anesthesia Assessment: Anesthesia Plan Discussed Final Anesthetic Review History of Problems with Anesthesia: No NPO: Yes ASA Class: III Final Preanesthetic Review: Meds/Allgs Chart Reviewed, Consent Obtained/Reviewed and Anes Risks/Benef Reviewed Patient Risk: Intermediate Procedure Risk: Intermediate Anesthetic Plan Anesthetic Plan: MAC: Disposition: Standard PACU
[2024-12-22 05:24] VITALS: BMI 46.5
[2024-12-22 12:06] VITALS: BP 149/85; PULSE 106; RESP 20; TEMP 36.1; O2SAT 98; BMI 46.3
[2024-12-22 12:23] LABS: UPreg QC Valid YES
[2024-12-22] MEDS: Lactated Ringers 1,000 ML 100 ML IVCONT (12:29)
--- NOTE | 2024-12-22 13:13 | MHC.SHP ---
Pre-Procedural Eval Section A - 24 Hr Update-Section A only Date of Service: 12/22/24 The patient is an INPATIENT: No The patient has been examined within 24 hours of the surgical procedure. The History & Physical has been completed within 30 days and I have reviewed it.: Yes Section B - Complete if H&P > 30 days Chief Complaint: Morbid (severe) obesity due to excess calories Relevant Family History (Specify if Yes): No Relevant Social History: None Present Medications: None Medical History: No relevant PMH History of Previous Operations: No relevant previous surgery Allergies: Allergies Allergy/AdvReac Type Severity Reaction Status Date / Time No Known Allergies Allergy Verified 12/04/24 14:05 Review of Systems Sugical H&P ROS: Negative: Constitution, Cardiovascular, Respiratory, Neurological, Psychiatric, Hem-Onc, Allergic/Immunologic, Gastrointestinal, Genitourinary, Musculoskeletal, Integumentary, Endocrine and Eyes/Ears/Nose/Throat Exam Surgical H&P Exam: Normal: HEENT, Normal: Heart, Normal: Lungs, Normal: Extremities, Normal: Abdomen, Normal: Skin and Normal: Neurological Plan Diagnosis/Plan: Unchanged (EGD to assess the stomach's anatomy. Risks of bleeding and perforation were discussed with the patient and she is in agreement with the plan.) I have reviewed the history and physical and performed a pertinent physical examination on my patient. No changes have occurred unless specified. Time Spent With Patient Time: Total time managing care of this patient today ____ minutes.
--- NOTE | 2024-12-22 13:16 | PM.OP ---
Brief Operative Note Date of Service: 12/22/24 Pre-op diagnosis: Morbid obesity Post-op diagnosis: same Procedure: PROCEDURE DATE: 12/22/2024 PREOPERATIVE DIAGNOSIS: Morbid obesity POSTOPERATIVE DIAGNOSIS: ?Same as above. Small diaphragmatic hernia PROCEDURE: [id number]-[id number] with biopsies Surgeon: Razia Gupta M.D.. Ph.D. Tunnel Elastic Operator Zigzag: None ? Anesthesia: IV sedation Estimated blood loss: ?Minimal FINDINGS AND PROCEDURE: ? OPERATIVE INDICATIONS: ?The patient is a 39 year old female known to me who is interested in bariatric surgery. Based on this information I recommended an upper endoscopy to evaluate the patient's symptoms. Risks and complications of the surgery were discussed with the patient in advance particularly the possibility of perforation or bleeding that may require surgical intervention. The patient understood the risks and was in agreement with the plan. ? PROCEDURE: After informed consent was obtained by the patient, the patient was ?transferred to the Operating Room and was placed in the supine position.? After successful induction of IV sedation, a mouth block was inserted and the patient was placed in the left lateral decubitus position. An upper endoscopy was performed next, the oropharynx and esophagus appeared within the normal limits. There was a 2cm reducible hiatal hernia. The z-line was smooth. Two biopsies were obtained from the distal esophagus 2-3 cm proximal to the GE junction and two additional biopsies from the GE junction. The stomach was entered and it appeared to be of normal size. There was no gastritis. There was no stricture or ulcer. A biopsy was obtained from the gastric fundus and the antrum. No significant bleeding was noted from any of the biopsy sites. Retroflexion of the scope confirmed the presence of a normal GE junction. The scope was then advanced into the duodenum which appeared to be normal as well. At that point the duodenum ?and the stomach were decompressed and the scope was withdrawn from the patient's mouth. The patient extubated and was transferred in stable condition to the Recovery Room for further care. I was present and performed all steps of the procedure. There were no residents to assist with this case. Tl Gupta M.D., Ph.D. Surgeon: Mike Gupta MD Anesthesia: MAC Was an Tunnel Elastic Operator Zigzag used for this Procedure?: No Estimated blood loss (mL): 0 IV fluids (mL): 400 Urine output (mL): 0 (No Estes to record output) Pathology: other (1) antrum x1, 2) fundus x1, 3) GE junction x2, 4) distal esophagus x2) Condition: stable Disposition: PACU
[2024-12-22 13:50] VITALS: BP 112/71; PULSE 113; RESP 18; TEMP 36.3; O2SAT 96
[2024-12-22 14:05] VITALS: BP 130/82; PULSE 100; RESP 16; TEMP 36.5; O2SAT 95
== END 2024-12-22 14:28 | disposition home or self-care (01) ==
PROVIDERS: Nurse Practitioner; PCP Internal Medicine; Visit Provider Surgery
PROC: 0DJ08ZZ Inspection of Upper Intestinal Tract, Via Natural or Artificial Opening Endoscopic (ICD-10-PCS; CPT 43235; principal; 2024-12-22 14:30)
DX: E66.01 Morbid (severe) obesity due to excess calories (principal); Z68.42 Body mass index [BMI] 45.0-49.9, adult; K44.9 Diaphragmatic hernia without obstruction or gangrene; F32.A Depression, unspecified; F41.9 Anxiety disorder, unspecified; Z79.899 Other long term (current) drug therapy; F17.210 Nicotine dependence, cigarettes, uncomplicated
CPT/HCPCS: 43239; 81025; 88305; 88313; 88342; J2003; J2704

== ENCOUNTER → 2024-12-22 12:00 | Outpatient (BNV) | payer BC, SELFPAY | PROVIDERS: PCP Internal Medicine; Visit Provider Surgery | DX: E66.01 Morbid (severe) obesity due to excess calories (principal); Z68.42 Body mass index [BMI] 45.0-49.9, adult; K44.9 Diaphragmatic hernia without obstruction or gangrene | CPT/HCPCS: 43239 ==

== ENCOUNTER 2024-12-30 11:12 | Outpatient (AMB) | payer BC, SELFPAY ==
--- NOTE | 2024-12-30 11:15 | MHC.WMTHER ---
Intake Intake Visit Reasons: OV BH Intake Allergies No Known Allergies Allergy (Verified 12/04/24 14:05) PFSH Medical History Anxiety Depression No known health problems Surgical History Hx of esophagogastroduodenoscopy History of cataract surgery Family History Mother Alzheimer disease Father Pulmonary fibrosis Mental health disorder Social History Housing: Apartment Alcohol intake: current Alcohol intake frequency: does not drink Alcohol type: beer and hard liquor Patient Tobacco Use Status: Current everyday Tobacco user Tobacco use type: Cigarette Cigarette Packs Per Day: 0.5 e-Cigarette/Vaping Use: Never Used Second Hand Smoke Exposure: No service: No Current occupational status: employed Current occupational exposures/hazards: No Cognitive needs: No Hearing needs: No Vision needs: Yes Behavioral Health Assessment Weight Management Therapy Therapy Notes Details The patient is a 39-year-old female presenting for her initial visit to begin the behavioral health assessment as part of the surgical weight loss program. She was initially referred by her PCP and was first interested in medical weight loss, but has since opted for the surgical weight loss pathway. The patient reports previously using tirzepatide about two years ago while in [place], during which she reduced her weight from 220 lbs to 196 lbs over approximately three months. Presenting Concerns Referral Source WMP-Provider Reason for referral Completion of behavioral health assessment as part of process for weight-loss surgery. Precipitating Event Obesity Living Situation Current Living Situation Own At risk of losing current housing? No Satisfied with current living situation? Yes Comments Pt lives with her and her elder mother. Social History Family history and relationship PT currently since 2018, they don't have children. Her father about 1 year ago, her mother is alive and currently lives with her. PT has 2 siblings, 1 lives in [place] and the other in [place]. PT reports current conflicts with siblings. Parental/Familial dural mechanic obligations 67 y/o Mother who has Alzheimer's and she is her primary caregiver Developmental history and status None. Currently WNL. Social support , best friend. Community support None Restorationism/Spirituality Ep[employer]opalian. Cultural/Ethnic information , PT was born in [place], been living in [place] 8 years ago. Legal Involvement and History Current or historical involvement with the legal system? None reported. Education Highest grade completed Associate degree in nursing ([employer]IMAL DAMAGE [employer]) Preferred learning style Auditory, Written and Visual Currently enrolled in educational program? No Interested in further educational program? 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 No Meaningful activities Video games, watch TV/ Financial Situation Describe current financial situation Comfortable Financial assistance? None Service Service? No Mental Health and Addiction Treatment Current/Past substance abuse? No Comments Alcohol: 1-2 times at year, 2-3 drinks. Cigarettes/Tobacco: yes, 1/2 box at day. Cannabis/Edibles: None. Current/Past addictive behavior concerns? No Psychiatric history The patient has a history of depression and anxiety. Her PCP started her on bupropion XL 150 mg daily a few months ago, but she reports inconsistent use and has not noticed any benefit. She previously attended counseling in [place] about 10 years ago, and later at [facility] in 2019 for less than a year. She has a past diagnosis of depression. Approximately 15 years ago, the patient had a suicide attempt by medication overdose, resulting in a one-day hospital stay; she was discharged home without inpatient psychiatric admission due to low imminent risk. Over the past year, she remained stable until this past summer, when she began experiencing low mood, decreased interest in activities, increased stress, and higher tobacco use, which she attributes to caregiving responsibilities. She denies any safety concerns since her prior suicide attempt and reports no recent suicidal ideation, self-harm, or thoughts of harm to others. Medical and Physical Health Summary Additional Medical History not covered in history Knee problems. Sexual History concerns None reported. Physical exam in the last year? No Pain Screening Current pain? Yes Pain in the last few months? Yes Comments waist and Knee pain. Medications Is the patient compliant with medications? Yes Does the patient have Lora Guardian in place? Not applicable Does the patient use complimentary health approaches? No Questionnaires PHQ-9 Over the last 2 weeks, how often have you been bothered by any of the following problems? 1. Little interest or pleasure in doing things: several days 2. Feeling down, depressed, or hopeless: several days 3. Trouble falling or staying asleep, or sleeping too much: several days 4. Feeling tired or having little energy: more than half the days 5. Poor appetite or overeating: several days 6. Feeling bad about yourself - or that you are a failure or have let yourself or your family down: not at all 7. Trouble concentrating on things, such as reading the newspaper or watching television: not at all 8. Moving or speaking so slowly that other people could have noticed. Or the opposite - being so fidgety or restless that you have been moving around a lot more than usual: not at all 9. Thoughts that you would be better off or of hurting yourself in some way: not at all Total score: 6 Depression Screening Interpretation: Positive (From new PT pack completed on 09/11/2024.) Depression Screening Done: Yes Source: Developed by Drs. Rome Remy, Kassy Oliva, Chandra Fam and colleagues, with an educational ahsan from [employer]. Binge Eating Scale Group 1 A. I don't feel self-conscious about my wt. or body size when I'm with others. B. I feel concerned about how I look to others, but it normally does not make me fell disappointed with myself C. I do get self-conscious about my appearance and wt. which makes me feel disappointed in myself. D. I feel very self-conscious about my wt. and frequently I feel intense shame and disgust for myself. I try to avoid social contacts because of my self-consciousness. Response Group 1: A Group 3 A. I feel capable to control my eating urges when I want to. B. I feel like I have failed to control my eating more than the average person. C. I feel utterly helpless when it comes to feeling in control of my eating urges. D. Because I feel so helpless about controlling my eating I have become very desperate about trying to get control. Response Group 3: A Group 4 A. I don't have the habit of eating when I'm bored. B. I sometimes eat when I'm bored, but often I'm able to get busy and get my mind off food. C. I have a regular habit of eating when I'm bored, but occasionally, I can use some other activity to get my mind off eating. D. I have a strong habit of eating when I'm bored. Nothing seems to help me breath the habit. Response Group 4: A Group 5 A. I'm usually physically hungry when I eat something. B. Occasionally, I eat something on impulse even though I really am not hungry. C. I have the regular habit of eating foods, that I might not really enjoy, to satisfy a hungry feeling even though physically, I don't need the food. D. Although I'm not physically hungry, I get a hungry feeling in my mouth that only seems to be satisfied when I eat a food, like sandwich, that fills my mouth. Sometimes, when I eat the food to satisfy my mouth hunger, I then spit the food out so I won't gain weight. Response Group 5: A Group 6 A. I don't feel any guilt or self-hate after I overeat. B. After I overeat, occasionally I feel guilt or self-hate. C. Almost all the time I experience strong guilt or self-hate after I overeat. Response Group 6: B Group 10 A. I usually am able to stop eating when I want to. I know when enough is enough. B. Every so often, I experience a compulsion to eat which I can't seem to control. C. Frequently, I experience strong urges to eat which I seem unable to control, but at other times I can control my eating urges. D. I feel incapable of controlling urges to eat. I have a fear of not being able to stop eating voluntarily. Response Group 10: A Binge Eating Score: 1 (Missing several items. ) Score less than 17 Minimal Risk Score between 18-26 Moderate Risk Score between 27-46 High Risk Assessment & Plan Assessment & Plan (1) Adjustment disorder: Code(s): F43.20 - Adjustment disorder, unspecified Qualifiers: Adjustment disorder type: with mixed anxiety and depressed mood Qualified Code(s): F43.23 - Adjustment disorder with mixed anxiety and depressed mood (2) Pre-bariatric surgery psychological evaluation: Code(s): Z71.89 - Other specified counseling Plan The patient was not cleared today as the assessment was not completed. The patient will return in 2-4 weeks to continue the evaluation. Next appointment: 01/15/2025 at 2pm, video [place] [address] Psy Diag Eval Patient Type New Diagnoses Adjustment disorder with mixed anxiety and depressed mood F43.23 Adjustment disorder type: with mixed anxiety and depressed mood Pre-bariatric surgery psychological evaluation Z71.89 Time Spent (min) 50
--- OUTSIDE RECORDS SUMMARY | 2024-12-30 13:37 | XMS_ITS ---
Author Name [facility] Organization Unknown Care Team Organization Name Specialty Phone Email Start Date End Da te [facility] Tucker Sauceda DO Primary Care 05/02/202209/25 [facility] NULL Primary Care 01/02/2022 10/14/2023
== END 2024-12-30 12:06 | disposition home or self-care (01) ==
LOC: HO.HBST 11:13
PROVIDERS: PCP Internal Medicine; Visit Provider Counselor Mental Health
DX: F43.23 Adjustment disorder with mixed anxiety and depressed mood (principal); Z71.89 Other specified counseling
CPT/HCPCS: 90791